=== PATIENT | female | born 1995 | race Caucasian/White ===

== ENCOUNTER → 2020-02-02 | Outpatient (CLI) | payer BC, OTHER ==
--- NOTE | 2020-02-02 17:47 | EKG REPORT ---
SEVERITY:- BORDERLINE ECG - SINUS RHYTHM : Confirmed by: Tonny Eric MD 02-Feb-2020 17:45:58
== END ==
LOC: OD 13:36
PROVIDERS: ATTEND Nurse Practitioner
DX: R00.2 Palpitations (principal)
CPT/HCPCS: 93005; 93010